=== PATIENT | female | born 1945 | race Caucasian/White ===

== ENCOUNTER 2016-10-07 10:51 | Inpatient (IN) | payer MEDICARE, MEDICAID ==
[~2016-10-07] VITALS: Ht 152.4 cm; Wt 54.3 kg
[~2016-10-07 10:51] MED LIST: BACITRACIN 50,000 UNIT ONE; BUPIVACAINE/PF 0.5% ONE; FENTANYL PF 250 MCG/5ML ONE; MIDAZOLAM 1 MG/ML, 2ML ONE; REMIFENTANIL 2 MG ONE; THROMBIN 5,000 UNIT VIAL TP ONE
[2016-10-07] MEDS ORDERED: ACET325T14 PO (11:25)
[2016-10-07] MEDS ORDERED: LISI2.5T PO (11:25)
[2016-10-07] MEDS ORDERED: TRAM50TA2 PO (11:25)
[2016-10-07] MEDS ORDERED: HYDR-879 PO (11:25)
[2016-10-07 11:30] VITALS: BP 166/99
[2016-10-07] MEDS ORDERED: LACTATED RINGERS 1,000 ML IV SCH ×2 (11:43)
[2016-10-07] MEDS ORDERED: PROPOFOL 10 MG/ML, 50ML ONE (12:05)
[2016-10-07] MEDS ORDERED: NEOSTIGMINE 1 MG/ML, 10ML ONE (12:05)
[2016-10-07] MEDS ORDERED: ONDANSETRON 2MG/ML, 2ML ONE (12:05)
[2016-10-07] MEDS ORDERED: DEXAMETHASONE 4 MG/ML, 1ML ONE (12:05)
[2016-10-07] MEDS ORDERED: GLYCOPYRROLATE 0.2MG/1ML ONE (12:05)
[2016-10-07] MEDS ORDERED: ROCURONIUM 10 MG/ML ONE (12:05)
[2016-10-07] MEDS ORDERED: SUCCINYLCHOLINE 20 MG/ML, 10ML ONE (12:05)
[2016-10-07] MEDS ORDERED: PROPOFOL 10 MG/ML, 20ML ONE (12:05)
[2016-10-07] MEDS ORDERED: CEFAZOLIN 1,000 MG ONE (12:05)
[2016-10-07] MEDS ORDERED: ALBUTEROL SULFATE 2.5 MG/3 ML NPPB PRN (13:30)
[2016-10-07] MEDS ORDERED: METOPROLOL 1 MG/ML, 5ML IV PRN (13:30)
[2016-10-07] MEDS ORDERED: ACETAMINOPHEN 325 MG TABLET PO PRN (13:30)
[2016-10-07] MEDS ORDERED: hydrALAzine 20 MG/ML, 1ML IV PRN (13:30)
[2016-10-07] MEDS ORDERED: MEPERIDINE/PF 25MG/0.5ML IVPush PRN (13:30)
[2016-10-07] MEDS ORDERED: ONDANSETRON 2MG/ML, 2ML IVPush PRN (13:30)
[2016-10-07] MEDS ORDERED: PROMETHAZINE 25 MG/ML, 1ML IV PRN (13:30)
[2016-10-07] MEDS ORDERED: LABETALOL 5MG/ML, 20ML IV PRN ×2 (13:30→18:00)
[2016-10-07] MEDS ORDERED: ALBUTEROL/IPRATROPIUM 2.5MG/0.5MG, 3 ML NPPB PRN (13:30)
[2016-10-07] MEDS ORDERED: OXYcodone 5 MG/5 ML ORAL.SOL UDC PO PRN (13:30)
[2016-10-07] MEDS ORDERED: MIDAZOLAM 1 MG/ML, 2ML IV PRN (13:30)
[2016-10-07] MEDS ORDERED: EPHEDRINE 50 MG/ML, 1ML IVPush PRN (13:30)
[2016-10-07] MEDS ORDERED: VANCOMYCIN 1,000 MG ONE (14:32)
[2016-10-07] MEDS ORDERED: HYDROcodone/APAP 7.5-325MG/15ML UDC ONE (15:34)
[2016-10-07] MEDS ORDERED: FENTANYL PF 100 MCG/2ML ONE (15:34)
[2016-10-07] MEDS ORDERED: PROMETHAZINE 25 MG/ML, 1ML ONE (15:34)
[2016-10-07] MEDS ORDERED: HYDROmorphone 2 MG/ML, 1ML ONE (15:34)
[2016-10-07] MEDS ORDERED: ACETAMINOPHEN 650 MG/20.3 ML UDC ONE (15:35)
[2016-10-07] MEDS ORDERED: OXYcodone 5 MG/5 ML ORAL.SOL UDC ONE (15:36)
[2016-10-07] MEDS: FENTANYL PF 100 MCG/2ML IV PRN ×2 (15:40→15:50)
[2016-10-07] MEDS ORDERED: HYDROmorphone 1 MG/ML, 1ML ONE (15:49)
[2016-10-07] MEDS: HYDROmorphone 1 MG/ML, 1ML IV PRN ×2 (16:00→16:15)
[2016-10-07] MEDS: DIAZEPAM 5 MG/ML, 2ML IV PRN ×2 (16:25→17:49)
[2016-10-07] MEDS ORDERED: EPHEDRINE 50 MG/ML, 1ML ONE (16:35)
[2016-10-07] MEDS ORDERED: HYDROmorphone PCA 30 MG/30 ML ONE (16:46)
[2016-10-07] MEDS ORDERED: HYDROmorphone PCA 30 MG/30 ML IV PRN (17:00)
[2016-10-07] MEDS ORDERED: ONDANSETRON 2MG/ML, 2ML IV PRN (18:00)
[2016-10-07] MEDS ORDERED: SODIUM CHLORIDE 0.9%, 500ML IVBOLUS ONE (18:00)
[2016-10-07] MEDS ORDERED: MAGNESIUM HYDROXIDE 8%, 30ML UDC PO PRN (18:00)
[2016-10-07] MEDS ORDERED: BISACODYL 10 MG SUPP PR PRN (18:00)
[2016-10-07] MEDS: NS + 20MEQ KCL 1,000 ML IV SCH (18:35)
[2016-10-07] MEDS ORDERED: METHOCARBAMOL 1,000 MG in DEXTROSE 5% 100 ML IV ONE (19:00)
[2016-10-07 20:01] VITALS: BP 85/56
[2016-10-07 20:15] VITALS: BP 90/53
[2016-10-07] MEDS: CALCIUM CARBONATE 500 MG TAB.CHEW PO SCH (22:23)
[2016-10-07] MEDS: SENNA/DOCUSATE TABLET PO SCH (22:23)
[2016-10-07] MEDS ORDERED: SODIUM CHLORIDE 0.9% 1,000ML IVBOLUS ONE (22:30)
[2016-10-07] MEDS ORDERED: ALBUTEROL SULFATE 2.5 MG/3 ML ONE (22:49)
[2016-10-08] VITALS (10 sets, daily range): BP systolic 96–152; BP diastolic 56–85
[2016-10-08] MEDS: METHOCARBAMOL 750 MG in DEXTROSE 5% 100 ML IV SCH ×3 (03:21→21:20)
[2016-10-08 05:16] LABS: BLOOD UREA NITROGEN 22 mg/dL (7-18)
[2016-10-08] MEDS: SENNA/DOCUSATE TABLET PO SCH ×2 (08:02→21:19)
[2016-10-08] MEDS: CHOLECALCIFEROL 1,000 UNIT TABLET PO SCH (08:02)
[2016-10-08] MEDS: CALCIUM CARBONATE 500 MG TAB.CHEW PO SCH ×2 (08:02→21:20)
[2016-10-08] MEDS: OXYcodone IR 5MG TABLET PO PRN ×5 (08:02→22:12)
[2016-10-08] MEDS: NS + 20MEQ KCL 1,000 ML IV SCH (10:03)
[2016-10-08] MEDS ORDERED: DIAZEPAM 5 MG TABLET PO PRN (12:00)
[2016-10-08] MEDS ORDERED: HYDROmorphone 1 MG/ML, 1ML IV ONE (15:30)
[2016-10-08] MEDS ORDERED: HYDROmorphone 1 MG/ML, 1ML IV PRN (15:30)
[2016-10-08] MEDS: HEPARIN 5,000 UNITS/ML, 1ML SQ SCH (21:20)
[2016-10-09] MEDS: OXYcodone IR 5MG TABLET PO PRN ×4 (01:06→16:58)
[2016-10-09 01:48] VITALS: BP 109/68
[2016-10-09] MEDS: NS + 20MEQ KCL 1,000 ML IV SCH ×3 (03:19→20:57)
[2016-10-09 05:09] LABS: BLOOD UREA NITROGEN 16 mg/dL (7-18)
[2016-10-09] MEDS: METHOCARBAMOL 750 MG in DEXTROSE 5% 100 ML IV SCH ×3 (05:17→20:56)
[2016-10-09 06:30] VITALS: BP 106/63
[2016-10-09] MEDS: CALCIUM CARBONATE 500 MG TAB.CHEW PO SCH ×2 (09:00→20:56)
[2016-10-09] MEDS: SENNA/DOCUSATE TABLET PO SCH ×2 (09:00→20:56)
[2016-10-09] MEDS: CHOLECALCIFEROL 1,000 UNIT TABLET PO SCH (09:00)
[2016-10-09] MEDS: HEPARIN 5,000 UNITS/ML, 1ML SQ SCH ×2 (09:01→21:00)
[2016-10-09 14:40] VITALS: BP 139/78
[2016-10-09 19:12] VITALS: BP 125/79
[2016-10-10 01:23] VITALS: BP 116/66
[2016-10-10] MEDS: OXYcodone IR 5MG TABLET PO PRN ×4 (03:20→17:58)
[2016-10-10 05:05] LABS: BLOOD UREA NITROGEN 9 mg/dL (7-18)
[2016-10-10] MEDS: METHOCARBAMOL 750 MG TABLET PO SCH ×3 (06:13→23:26)
[2016-10-10 07:11] VITALS: BP 117/64
[2016-10-10] MEDS: HEPARIN 5,000 UNITS/ML, 1ML SQ SCH ×2 (08:47→21:09)
[2016-10-10] MEDS: CALCIUM CARBONATE 500 MG TAB.CHEW PO SCH ×2 (08:51→21:05)
[2016-10-10] MEDS: CHOLECALCIFEROL 1,000 UNIT TABLET PO SCH (08:51)
[2016-10-10] MEDS: SENNA/DOCUSATE TABLET PO SCH ×2 (09:00→21:00)
[2016-10-10 12:40] VITALS: BP 126/86
[2016-10-10] MEDS: NS + 20MEQ KCL 1,000 ML IV SCH (13:05)
[2016-10-10 19:10] VITALS: BP 144/80
[2016-10-11] MEDS: NS + 20MEQ KCL 1,000 ML IV SCH ×3 (00:58→15:33)
[2016-10-11 02:05] VITALS: BP 127/81
[2016-10-11] MEDS: OXYcodone IR 5MG TABLET PO PRN ×3 (02:20→08:41)
[2016-10-11 06:53] VITALS: BP 131/80
[2016-10-11] MEDS: METHOCARBAMOL 750 MG TABLET PO SCH ×3 (07:49→23:10)
[2016-10-11] MEDS: CHOLECALCIFEROL 1,000 UNIT TABLET PO SCH (08:42)
[2016-10-11] MEDS: HEPARIN 5,000 UNITS/ML, 1ML SQ SCH ×2 (08:42→21:41)
[2016-10-11] MEDS: CALCIUM CARBONATE 500 MG TAB.CHEW PO SCH ×2 (08:49→21:36)
[2016-10-11] MEDS: SENNA/DOCUSATE TABLET PO SCH ×2 (08:49→21:36)
[2016-10-11] MEDS ORDERED: BACITRACIN OINT 500U/GM, 15 GM TP PRN (11:00)
[2016-10-11] MEDS ORDERED: HYDROcodone/APAP 10/325 MG TABLET PO PRN (11:00)
[2016-10-11 13:43] VITALS: BP 121/74
[2016-10-11 19:41] VITALS: BP 137/64
[2016-10-12 02:08] VITALS: BP 143/81
[2016-10-12] MEDS: NS + 20MEQ KCL 1,000 ML IV SCH (04:49)
[2016-10-12] MEDS: METHOCARBAMOL 750 MG TABLET PO SCH (06:49)
[2016-10-12 06:54] VITALS: BP 174/99
[2016-10-12] MEDS ORDERED: MORP-52 PO (07:24)
[2016-10-12] MEDS ORDERED: SENN8.6T79 PO (07:25)
[2016-10-12] MEDS ORDERED: CALC300T5 PO (07:25)
[2016-10-12] MEDS ORDERED: CHOL100018 PO (07:25)
[2016-10-12] MEDS ORDERED: KETOROLAC 30 MG/1 ML IM ONE (08:00)
[2016-10-12 09:03] VITALS: BP 129/76
[2016-10-12] MEDS: CALCIUM CARBONATE 500 MG TAB.CHEW PO SCH (09:05)
[2016-10-12] MEDS: HEPARIN 5,000 UNITS/ML, 1ML SQ SCH (09:05)
[2016-10-12] MEDS: CHOLECALCIFEROL 1,000 UNIT TABLET PO SCH (09:05)
[2016-10-12] MEDS: SENNA/DOCUSATE TABLET PO SCH (09:10)
[2016-10-12 09:39] VITALS: BP 142/64
== END 2016-10-12 13:00 | DRG 460 ==
LOC: ORIP 10:51 → 4NOR 17:23
PROVIDERS: ADMIT Neurological Surgery; ATTEND Neurological Surgery
PROC: 0SG30AJ Fusion of Lumbosacral Joint with Interbody Fusion Device, Posterior Approach, Anterior Column, Open Approach (ICD-10-PCS; 2016-10-07)
PROC: 0SG10Z1 (ICD-10-PCS; 2016-10-07)
PROC: 0SG30Z1 (ICD-10-PCS; 2016-10-07)
PROC: 4A11X4G Monitoring of Peripheral Nervous Electrical Activity, Intraoperative, External Approach (ICD-10-PCS; 2016-10-07)
PROC: 0SG10AJ Fusion of 2 or more Lumbar Vertebral Joints with Interbody Fusion Device, Posterior Approach, Anterior Column, Open Approach (ICD-10-PCS; principal; 2016-10-07 12:00)
PROC: 30233N1 Transfusion of Nonautologous Red Blood Cells into Peripheral Vein, Percutaneous Approach (ICD-10-PCS; 2016-10-08)
DX: M43.16 Spondylolisthesis, lumbar region (principal); D62 Acute posthemorrhagic anemia; M47.27 Other spondylosis with radiculopathy, lumbosacral region; M47.26 Other spondylosis with radiculopathy, lumbar region; I73.9 Peripheral vascular disease, unspecified; I95.9 Hypotension, unspecified; M48.07 Spinal stenosis, lumbosacral region; M48.06 Spinal stenosis, lumbar region; N99.89 Other postprocedural complications and disorders of genitourinary system; R33.8 Other retention of urine; R03.0 Elevated blood-pressure reading, without diagnosis of hypertension; Z99.3 Dependence on wheelchair
CPT/HCPCS: 36415; 71010; 72100; 80048; 85014; 85018; 85025; 85610; 85730; 86850; 86900; 86923; 94640; C1713; J0690; J1100; J1170; J1644; J1885; J2250; J2405; J2704; J2710; J3010; J3360; J3370; J3480; J3490; C1762; J0330; J2800; J7030; J7040; J7120; P9016